=== PATIENT | female | born 1970 | race Two or more races ===

== ENCOUNTER 2018-03-26 14:47 | Emergency (ER) | payer OTHER ==
[~2018-03-26] VITALS: Ht 172.7 cm; Wt 96.2 kg
[2018-03-26] MEDS ORDERED: ENOXAPARIN SODIUM 80 MG/0.8 ML DISP.SYRIN SQ ONE (14:50)
[2018-03-26 15:20] LABS: BASOPHILS # (AUTO) 0.1 /CMM (0.0-0.2); BASOPHILS % (AUTO) 1.4 % (0.0-2.0); EOSINOPHILS % (AUTO) 0.9 % (0.0-6.0); HEMATOCRIT 35 % (33-45); HEMOGLOBIN 12.1 g/dL (11.5-14.8); LYMPHOCYTES # (AUTO) 1.1 /CMM (0.8-4.8); LYMPHOCYTES % (AUTO) 17.3 % (20.0-44.0); MEAN CORPUSCULAR HEMOGLOBIN 30 PG (26.0-33.0); MEAN CORPUSCULAR HGB CONC 35 g/dl (31.0-36.0); MEAN CORPUSCULAR VOLUME 87 fL (82-100); MONOCYTES # (AUTO) 0.3 /CMM (0.1-1.30); MONOCYTES % (AUTO) 4.9 % (2.0-12.0); NEUTROPHILS # (AUTO) 4.8 /CMM (1.8-8.9); NEUTROPHILS % (AUTO) 75.5 % (43.0-81.0); PLATELET COUNT (AUTO) 239 /CMM (150-450); RDW COEFFICIENT OF VARIATION 13.7 (11.5-15.0); RED BLOOD CELL COUNT(AUTO) 4.04 MIL/uL (4.0-5.2); WHITE BLOOD COUNT (AUTO) 6.4 K/uL (4.3-11.0)
[2018-03-26 15:28] LABS: CALCIUM, SERUM 8.7 mg/dL (8.5-10.1); CREATININE 0.7 mg/dL (0.6-1.3); POTASSIUM 4.1 mmol/L (3.5-5.1)
[2018-03-26 15:32] LABS: INR 0.83 (0.85-1.15)
[2018-03-26] MEDS: ENOXAPARIN SODIUM 60 MG/0.6 ML DISP.SYRIN SQ ONE (15:50)
--- NOTE | 2018-03-26 17:20 | NUR ---
Patient discharged to home in stable condition. Written and verbal after care instructions given. Patient verbalizes understanding of instruction.
[2018-03-26 17:22] VITALS: BP 131/77
== END 2018-03-26 17:23 | disposition home or self-care (01) ==
LOC: ER 14:49
DX: I82.411 Acute embolism and thrombosis of right femoral vein (principal); I82.431 Acute embolism and thrombosis of right popliteal vein; R60.0 Localized edema; F41.9 Anxiety disorder, unspecified; F32.9 Major depressive disorder, single episode, unspecified; F17.200 Nicotine dependence, unspecified, uncomplicated
CPT/HCPCS: 36415; 80048-TC; 85025-TC; 85730-TC; 93971-TC; A4606; J1650; Z7610

== ENCOUNTER 2018-03-31 13:49 | Emergency (ER) | payer OTHER ==
[~2018-03-31] VITALS: Ht 172.7 cm; Wt 96.2 kg
--- NOTE | 2018-03-31 14:00 | NUR ---
A/OX4. AMBULATORY IN A STEADY GAIT, C/O PAIN AND WEAKNESS TO R UPPER EXTREMITY X 3 DAYS. NAD. VSS NEURO INTACT. WILL CONT TO MONITOR
[2018-03-31 15:01] LABS: BASOPHILS % (AUTO) 0.1 % (0.0-2.0); EOSINOPHILS % (AUTO) 0.2 % (0.0-6.0); HEMATOCRIT 35 % (33-45); HEMOGLOBIN 12.2 g/dL (11.5-14.8); LYMPHOCYTES % (AUTO) 19.9 % (20.0-44.0); MEAN CORPUSCULAR HEMOGLOBIN 30 PG (26.0-33.0); MEAN CORPUSCULAR HGB CONC 35 g/dl (31.0-36.0); MEAN CORPUSCULAR VOLUME 87 fL (82-100); MONOCYTES # (AUTO) 0.3 /CMM (0.1-1.30); MONOCYTES % (AUTO) 6.3 % (2.0-12.0); NEUTROPHILS # (AUTO) 3.5 /CMM (1.8-8.9); NEUTROPHILS % (AUTO) 73.5 % (43.0-81.0); PLATELET COUNT (AUTO) 305 /CMM (150-450); RDW COEFFICIENT OF VARIATION 14.2 (11.5-15.0); RED BLOOD CELL COUNT(AUTO) 4.07 MIL/uL (4.0-5.2); WHITE BLOOD COUNT (AUTO) 4.8 K/uL (4.3-11.0)
[2018-03-31 15:09] LABS: CREATININE 0.8 mg/dL (0.6-1.3); POTASSIUM 4.2 mmol/L (3.5-5.1)
[2018-03-31 15:12] LABS: INR 0.93 (0.85-1.15)
--- NOTE | 2018-03-31 16:12 | NUR ---
IV removed. Catheter intact and site benign. Pressure and 4x4 applied to site. No bleeding noted.Patient discharged to home in stable condition. Written and verbal after care instructions given. Patient verbalizes understanding of instruction.
[2018-03-31 16:14] VITALS: BP 124/74
== END 2018-03-31 16:15 | disposition home or self-care (01) ==
LOC: ER 13:53
DX: M25.521 Pain in right elbow (principal); M25.511 Pain in right shoulder; R60.0 Localized edema; F41.9 Anxiety disorder, unspecified; R00.0 Tachycardia, unspecified; F17.210 Nicotine dependence, cigarettes, uncomplicated; F32.9 Major depressive disorder, single episode, unspecified; E78.00 Pure hypercholesterolemia, unspecified; G47.00 Insomnia, unspecified; Z86.718 Personal history of other venous thrombosis and embolism
CPT/HCPCS: 36415; 73030-TC; 73080-TC; 80048-TC; 85025-TC; 85730-TC; 93971-TC; A4606; Z7610

== ENCOUNTER 2018-04-17 13:35 | Emergency (ER) | payer OTHER ==
[~2018-04-17] VITALS: Ht 172.7 cm; Wt 95.3 kg
--- NOTE | 2018-04-17 13:40 | NUR ---
PT AMBULATORY TO ER BED . PT IS C/O RLE PAIN AND SWELLING. PT STATES 7/ PAIN. WAS DIAGNOSED W/ DVT LAST 03/26/18. PT ALSO WANT MED REFILL FOR HER ELIQUIS. VSS. STABLE VITALS. AWAITING MD LACKEY.
--- NOTE | 2018-04-17 14:20 | NUR ---
UDAY RHODES AT BEDSIDE FOR EVAL.
[2018-04-17] MEDS ORDERED: IOHEXOL-350 100 ML VIAL IV ONE (14:59)
[2018-04-17] MEDS ORDERED: CT SWABBABLE VALVE TRANS SET 1 EA INFUS.SET MC ONE (15:00)
[2018-04-17] MEDS ORDERED: IV NS 0.9% 1,000 ML BAG IV ONE (15:00)
[2018-04-17] MEDS ORDERED: IV NS 0.9% 250 ML IV ONE (15:00)
[2018-04-17 15:01] LABS: BASOPHILS % (AUTO) 0.3 % (0.0-2.0); EOSINOPHILS % (AUTO) 0.1 % (0.0-6.0); HEMATOCRIT 39 % (33-45); HEMOGLOBIN 13.2 g/dL (11.5-14.8); LYMPHOCYTES # (AUTO) 1.2 /CMM (0.8-4.8); LYMPHOCYTES % (AUTO) 24.2 % (20.0-44.0); MEAN CORPUSCULAR HEMOGLOBIN 29 PG (26.0-33.0); MEAN CORPUSCULAR HGB CONC 34 g/dl (31.0-36.0); MEAN CORPUSCULAR VOLUME 86 fL (82-100); MONOCYTES # (AUTO) 0.4 /CMM (0.1-1.30); MONOCYTES % (AUTO) 6.9 % (2.0-12.0); NEUTROPHILS # (AUTO) 3.6 /CMM (1.8-8.9); NEUTROPHILS % (AUTO) 68.5 % (43.0-81.0); PLATELET COUNT (AUTO) 244 /CMM (150-450); RDW COEFFICIENT OF VARIATION 13.6 (11.5-15.0); RED BLOOD CELL COUNT(AUTO) 4.56 MIL/uL (4.0-5.2); WHITE BLOOD COUNT (AUTO) 5.2 K/uL (4.3-11.0)
[2018-04-17 15:09] LABS: CALCIUM, SERUM 9.1 mg/dL (8.5-10.1); CARBON DIOXIDE 30 mmol/L (21-32); CHLORIDE 102 mmol/L (98-107); CREATININE 0.8 mg/dL (0.6-1.3); GLUCOSE 94 mg/dL (74-106); POTASSIUM 4.1 mmol/L (3.5-5.1); SODIUM SERUM 135 mmol/L (136-145); UREA NITROGEN, BLOOD 7 mg/dL (7-18)
[2018-04-17 15:10] LABS: INR 0.93 (0.85-1.15)
[2018-04-17 15:24] LABS: TROPONIN I < 0.017 ng/mL (0.00-0.056)
[2018-04-17 18:20] VITALS: BP 123/72
--- NOTE | 2018-04-17 18:30 | NUR ---
Patient discharged to home in stable condition. Written and verbal after care instructions given. Patient verbalizes understanding of instruction.IV removed. Catheter intact and site benign. Pressure and 4x4 applied to site. No bleeding noted.
== END 2018-04-17 18:53 | disposition home or self-care (01) ==
LOC: ER 13:36
DX: I82.491 Acute embolism and thrombosis of other specified deep vein of right lower extremity (principal); I87.2 Venous insufficiency (chronic) (peripheral); M79.1 Myalgia; F32.9 Major depressive disorder, single episode, unspecified; F41.9 Anxiety disorder, unspecified; F17.200 Nicotine dependence, unspecified, uncomplicated
CPT/HCPCS: 36415; 71275; 80048; 83880; 84484; 85025; 85730; 93005; 99285; A4606; J7030; J7050; Q9967; Z7610

== ENCOUNTER 2018-09-04 11:27 | Emergency (ER) | END 2018-09-04 14:19 | disposition home or self-care (01) | DX: I82.491 Acute embolism and thrombosis of other specified deep vein of right lower extremity (principal); R06.02 Shortness of breath; F32.9 Major depressive disorder, single episode, unspecified; F41.9 Anxiety disorder, unspecified; F17.200 Nicotine dependence, unspecified, uncomplicated ==

== ENCOUNTER 2018-10-06 10:30 | Emergency (ER) | payer OTHER ==
[~2018-10-06] VITALS: Ht 172.7 cm; Wt 94.3 kg
--- NOTE | 2018-10-06 10:40 | NUR ---
PT BIB SELF C/O JUSTICE LOWER EXTREMITY PAIN WITH HX OF DVT. PEDAL PULSES STRONG AND CAP REFILL WNL BILATERALLY. PT REPORTS SWELLING TODAY IS "BETTER THAN IT HAS BEEN FOR A MONTH", +1 PITTING BILATERALLY. DENIES CP, SOB. REST EVEN UNLABORED. SKIN WARM DRY. AMBULATORY STEADY GAIT. IN ER BED 11.
--- NOTE | 2018-10-06 11:02 | NUR ---
PT REQUESTING TO HAVE "COAG WORK-UP". NOTIFIED DR DYER.
--- NOTE | 2018-10-06 11:50 | NUR ---
US AT BEDSIDE
--- NOTE | 2018-10-06 12:54 | NUR ---
CALLED DR. MCBRIDE [phone] WILL CALL US BACK.
--- NOTE | 2018-10-06 13:37 | NUR ---
Patient discharged to home in stable condition. Written and verbal after care instructions given. Patient verbalizes understanding of instruction. ambulatory steady gait.
[2018-10-06 13:38] VITALS: BP 114/73
== END 2018-10-06 13:39 | disposition home or self-care (01) ==
LOC: ER 10:30
DX: I82.401 Acute embolism and thrombosis of unspecified deep veins of right lower extremity (principal); F32.9 Major depressive disorder, single episode, unspecified; F41.9 Anxiety disorder, unspecified; F17.200 Nicotine dependence, unspecified, uncomplicated; Z60.2 Problems related to living alone
CPT/HCPCS: 36415; 85730; 93970; 99284; A4606; Z7610

== ENCOUNTER 2019-05-12 15:47 | Emergency (ER) | payer MEDICAID, OTHER ==
[~2019-05-12] VITALS: Ht 172.7 cm; Wt 101.6 kg
--- NOTE | 2019-05-12 16:30 | NUR ---
PATIENT CAME IN TO THE ER C/O R THIGH PAIN AND SWELLING X 2 WEEKS. NO SOB. CONCERNED ABOUT DVT. AMBULATORY ON SCENE. ON ROOM AIR, BREATHING EVENLY AND UNLABORED. KEPT COMFORTABLE, WILL CONTINUE TO MONITOR ACCORDINGLY.
[2019-05-12] MEDS ORDERED: oxyCODONE/APAP (5/325 MG) 1 UDTAB TABLET PO ONE (17:00)
[2019-05-12] MEDS ORDERED: KETOROLAC TROMETHAMINE INJ 30 MG/ML VIAL IM ONE (17:00)
[2019-05-12 17:07] LABS: BASOPHILS # (AUTO) 0.1 /CMM (0.0-0.2); BASOPHILS % (AUTO) 1.1 % (0.0-2.0); EOSINOPHILS % (AUTO) 1.8 % (0.0-6.0); HEMATOCRIT 38 % (33-45); HEMOGLOBIN 12.7 g/dL (11.5-14.8); LYMPHOCYTES # (AUTO) 1.7 /CMM (0.8-4.8); LYMPHOCYTES % (AUTO) 32.3 % (20.0-44.0); MEAN CORPUSCULAR HGB CONC 34 g/dl (31.0-36.0); MEAN CORPUSCULAR VOLUME 85 fL (82-100); MONOCYTES # (AUTO) 0.4 /CMM (0.1-1.30); MONOCYTES % (AUTO) 7.7 % (2.0-12.0); NEUTROPHILS # (AUTO) 3.1 /CMM (1.8-8.9); NEUTROPHILS % (AUTO) 57.1 % (43.0-81.0); PLATELET COUNT (AUTO) 203 /CMM (150-450); RED BLOOD CELL COUNT(AUTO) 4.44 MIL/uL (4.0-5.2); WHITE BLOOD COUNT (AUTO) 5.4 K/uL (4.3-11.0)
[2019-05-12] MEDS ORDERED: oxyCODONE/APAP (5/325 MG) 1 UDTAB TABLET ONE (17:15)
[2019-05-12] MEDS ORDERED: KETOROLAC TROMETHAMINE 15 MG/ML VIAL ONE (17:15)
[2019-05-12 18:14] VITALS: BP 132/71
--- NOTE | 2019-05-12 18:15 | NUR ---
Patient discharged to home in stable condition. Written and verbal after care instructions given. Patient verbalizes understanding of instruction.
== END 2019-05-12 18:15 | disposition home or self-care (01) ==
LOC: ER 15:47
DX: I82.431 Acute embolism and thrombosis of right popliteal vein (principal); I82.411 Acute embolism and thrombosis of right femoral vein; R60.0 Localized edema; F32.9 Major depressive disorder, single episode, unspecified; F41.9 Anxiety disorder, unspecified; F17.200 Nicotine dependence, unspecified, uncomplicated; N92.0 Excessive and frequent menstruation with regular cycle; D25.9 Leiomyoma of uterus, unspecified; Z60.2 Problems related to living alone
CPT/HCPCS: 36415; 85025; 93971; 96372; 99284; 99406; J1885

== ENCOUNTER 2019-08-12 14:13 | Emergency (ER) | payer OTHER, MEDICAID ==
[~2019-08-12] VITALS: Ht 172.7 cm; Wt 102.1 kg
--- NOTE | 2019-08-12 14:20 | NUR ---
PT CAME INTO THE ED C/O R LOWER EXTREMITY PAIN X 2 WEEKS, HX OF DVT. OFF HER XARELTO SINCE JUNE. PT AAOX4, VSS, BREATHING EVEN AND UNLABORED ON ROOM AIR W/ NAD NOTED. PT CONNECTED TO THE MONITOR AND POX.
[2019-08-12] MEDS ORDERED: HYDROCODONE/APAP 5/325MG 1 EACH TABLET ONE (14:57)
[2019-08-12] MEDS ORDERED: HYDROCODONE/APAP 5/325MG 1 EACH TABLET PO ONE (15:00)
[2019-08-12 15:10] LABS: BASOPHILS % (AUTO) 0.6 % (0.0-2.0); EOSINOPHILS % (AUTO) 0.2 % (0.0-6.0); HEMATOCRIT 39 % (33-45); LYMPHOCYTES # (AUTO) 1.3 /CMM (0.8-4.8); LYMPHOCYTES % (AUTO) 19.9 % (20.0-44.0); MEAN CORPUSCULAR HGB CONC 33 g/dl (31.0-36.0); MEAN CORPUSCULAR VOLUME 85 fL (82-100); MONOCYTES # (AUTO) 0.4 /CMM (0.1-1.30); MONOCYTES % (AUTO) 6.3 % (2.0-12.0); NEUTROPHILS # (AUTO) 4.7 /CMM (1.8-8.9); PLATELET COUNT (AUTO) 222 /CMM (150-450); RED BLOOD CELL COUNT(AUTO) 4.59 MIL/uL (4.0-5.2); WHITE BLOOD COUNT (AUTO) 6.4 K/uL (4.3-11.0)
--- NOTE | 2019-08-12 15:30 | NUR ---
ULTRASOUND AT BEDSIDE
[2019-08-12 16:42] VITALS: BP 117/74
--- NOTE | 2019-08-12 16:42 | NUR ---
Patient discharged to home in stable condition. Written and verbal after care instructions given. Patient verbalizes understanding of instruction.
== END 2019-08-12 16:44 | disposition home or self-care (01) ==
LOC: ER 14:14
DX: I82.401 Acute embolism and thrombosis of unspecified deep veins of right lower extremity (principal); F17.200 Nicotine dependence, unspecified, uncomplicated; F32.9 Major depressive disorder, single episode, unspecified; F41.9 Anxiety disorder, unspecified; Z60.2 Problems related to living alone
CPT/HCPCS: 36415; 85025-TC; 93971-TC

== ENCOUNTER 2020-03-22 10:50 | Emergency (ER) | payer MEDICAID, OTHER ==
[~2020-03-22] VITALS: Ht 172.7 cm; Wt 106.6 kg
--- NOTE | 2020-03-22 11:03 | NUR ---
CAME IN FOR RLE PAIN AND SWELLING X 1 WEEK. TO ER BED 11, HOOKED TO MONITOR, CHANGED TO HOSP GOWN, WARM BLANKET PROVIDED, PATIENT AAO x 4, BREATHING EVEN AND UNLABORED, DR LIPSCOMB AT BEDSIDE FOR EVAL.
[2020-03-22 11:36] LABS: BASOPHILS % (AUTO) 0.3 % (0.0-2.0); HEMATOCRIT 40 % (33-45); HEMOGLOBIN 13.3 g/dL (11.5-14.8); LYMPHOCYTES # (AUTO) 1.3 /CMM (0.8-4.8); LYMPHOCYTES % (AUTO) 17.6 % (20.0-44.0); MEAN CORPUSCULAR HGB CONC 34 g/dl (31.0-36.0); MEAN CORPUSCULAR VOLUME 87 fL (82-100); MONOCYTES # (AUTO) 0.5 /CMM (0.1-1.30); MONOCYTES % (AUTO) 6.5 % (2.0-12.0); NEUTROPHILS # (AUTO) 5.8 /CMM (1.8-8.9); NEUTROPHILS % (AUTO) 75.6 % (43.0-81.0); PLATELET COUNT (AUTO) 215 /CMM (150-450); RED BLOOD CELL COUNT(AUTO) 4.52 MIL/uL (4.0-5.2); WHITE BLOOD COUNT (AUTO) 7.6 K/uL (4.3-11.0)
[2020-03-22 11:44] LABS: CALCIUM, SERUM 8.9 mg/dL (8.5-10.1); CARBON DIOXIDE 29 mmol/L (21-32); CHLORIDE 103 mmol/L (98-107); CREATININE 0.8 mg/dL (0.6-1.3); GLUCOSE 101 mg/dL (74-106); POTASSIUM 4.9 mmol/L (3.5-5.1); SODIUM SERUM 138 mmol/L (136-145); UREA NITROGEN, BLOOD 12 mg/dL (7-18)
[2020-03-22 11:50] LABS: ALANINE AMINOTRANSFERASE 21 U/L (12-78); ALBUMIN 3.6 g/dL (3.4-5.0); ALKALINE PHOSPHATASE 97 U/L (46-116); ASPARTATE AMINOTRANSFERASE 19 U/L (15-37); BILIRUBIN,TOTAL 0.1 mg/dL (0.2-1.0); TOTAL PROTEIN, SERUM 7.3 g/dL (6.4-8.2)
[2020-03-22] MEDS ORDERED: CT SWABBABLE VALVE TRANS SET 1 EA INFUS.SET MC ONE (12:13)
[2020-03-22] MEDS ORDERED: IOHEXOL-350 100 ML VIAL IV ONE (12:13)
[2020-03-22] MEDS ORDERED: IV NS 0.9% 250 ML IV ONE (12:13)
--- NOTE | 2020-03-22 12:23 | NUR ---
PICKED UP BY [employer] VIA [facility] FOR CTA
[2020-03-22] MEDS ORDERED: HYDROCODONE/APAP 5/325MG 1 EACH TABLET PO ONE (13:00)
[2020-03-22] MEDS ORDERED: HYDROCODONE/APAP 5/325MG 1 EACH TABLET ONE (13:06)
[2020-03-22 13:46] VITALS: BP 121/80
== END 2020-03-22 13:47 | disposition home or self-care (01) ==
LOC: ER 11:01
DX: I82.492 Acute embolism and thrombosis of other specified deep vein of left lower extremity (principal); Z86.73 Personal history of transient ischemic attack (TIA), and cerebral infarction without residual deficits; Z60.2 Problems related to living alone
CPT/HCPCS: 36415; 71045; 71275; 80048; 80076; 84484; 85025; 85730; 93005; 93970; 99285; J7050; Q9967

== ENCOUNTER 2020-09-23 15:21 | Emergency (ER) | payer MEDICAID ==
[~2020-09-23] VITALS: Ht 172.7 cm; Wt 113.4 kg
--- NOTE | 2020-09-23 16:15 | NUR ---
covid swab collected sentto lab
--- NOTE | 2020-09-23 17:10 | NUR ---
Patient discharged to home in stable condition. Written and verbal after care instructions given. Patient verbalizes understanding of instruction.
[2020-09-23 17:12] VITALS: BP 154/98
== END 2020-09-23 17:12 | disposition home or self-care (01) ==
LOC: ER 15:31
DX: R05 Cough (principal); J02.9 Acute pharyngitis, unspecified; R68.83 Chills (without fever); Z20.822 Contact with and (suspected) exposure to COVID-19; M79.605 Pain in left leg; M79.604 Pain in right leg; Z86.718 Personal history of other venous thrombosis and embolism; Z79.01 Long term (current) use of anticoagulants; F32.9 Major depressive disorder, single episode, unspecified; F41.9 Anxiety disorder, unspecified
CPT/HCPCS: 71045; 99284; C9803; U0003

== ENCOUNTER 2020-10-13 14:16 | Emergency (ER) | payer MEDICAID ==
[~2020-10-13] VITALS: Ht 172.7 cm; Wt 113.4 kg
--- NOTE | 2020-10-13 14:40 | NUR ---
BIBS FROM HOME TO ER BED 6. AAOX4. NOT IN RESP DISTRESS, BREATHING EVEN, UNLABORED AND TALKING IN FULL COMPLETE SENTENCES. CAME IN FOR COUGH, CONGESTION, DIZZYNESS AND NUMBNESS AND TINGLING ON BILAT LEG. PT REPORTS THAT SHE IS STIL ABLE TO AMBULATED BUT SLOW AND WEAK. AWAITING MD FOR EVAL.
[2020-10-13] MEDS ORDERED: methylPREDNISolone SOD SUCC 125 MG/2ML VIAL IV ONE (15:00)
[2020-10-13] MEDS ORDERED: IV NS 0.9% 1,000 ML IV ONE (15:00)
[2020-10-13] MEDS ORDERED: ALBUTEROL FS 2.5 MG/3 ML VIAL.NEB NEB ONE (15:00)
[2020-10-13] MEDS ORDERED: IPRATROPIUM NEB FS 0.5 MG/2.5 ML AMPUL.NEB NEB ONE (15:00)
[2020-10-13] MEDS ORDERED: methylPREDNISolone SOD SUCC 125 MG/2ML VIAL ONE (15:22)
[2020-10-13 15:29] LABS: BASOPHILS % (AUTO) 0.4 % (0.0-2.0); EOSINOPHILS % (AUTO) 0.2 % (0.0-6.0); HEMATOCRIT 41 % (33-45); HEMOGLOBIN 13.7 g/dL (11.5-14.8); LYMPHOCYTES # (AUTO) 1.3 /CMM (0.8-4.8); MEAN CORPUSCULAR HGB CONC 33 g/dl (31.0-36.0); MEAN CORPUSCULAR VOLUME 86 fL (82-100); MONOCYTES # (AUTO) 0.5 /CMM (0.1-1.30); MONOCYTES % (AUTO) 6.3 % (2.0-12.0); NEUTROPHILS % (AUTO) 76.1 % (43.0-81.0); PLATELET COUNT (AUTO) 260 /CMM (150-450); RED BLOOD CELL COUNT(AUTO) 4.75 MIL/uL (4.0-5.2); WHITE BLOOD COUNT (AUTO) 7.9 K/uL (4.3-11.0)
[2020-10-13 15:46] LABS: CALCIUM, SERUM 9.4 mg/dL (8.5-10.1); CARBON DIOXIDE 26 mmol/L (21-32); CHLORIDE 100 mmol/L (98-107); CREATININE 0.9 mg/dL (0.6-1.3); GLUCOSE 139 mg/dL (74-106); POTASSIUM 4.5 mmol/L (3.5-5.1); SODIUM SERUM 137 mmol/L (136-145); UREA NITROGEN, BLOOD 7 mg/dL (7-18)
[2020-10-13 16:01] LABS: ALANINE AMINOTRANSFERASE 30 U/L (12-78); ALBUMIN 3.5 g/dL (3.4-5.0); ALKALINE PHOSPHATASE 132 U/L (46-116); ASPARTATE AMINOTRANSFERASE 21 U/L (15-37); B-TYPE NATRIURETIC PEPTIDE 9 PG/ML (0-125); BILIRUBIN,DIRECT 0.1 mg/dL (0.0-0.2); BILIRUBIN,TOTAL 0.2 mg/dL (0.2-1.0); TOTAL PROTEIN, SERUM 7.6 g/dL (6.4-8.2)
--- NOTE | 2020-10-13 16:49 | NUR ---
LAB CALLED. COVID RESULTS NEGATIVE.
[2020-10-13] MEDS ORDERED: MORPHINE SULFATE INJ 10 MG/ML DISP.SYRIN IM ONE (17:30)
[2020-10-13] MEDS ORDERED: ONDANSETRON HCL/PF 4 MG/2 ML VIAL IV ONE (17:30)
[2020-10-13] MEDS ORDERED: ALBUTEROL FS 2.5 MG/3 ML VIAL.NEB ONE (18:28)
[2020-10-13] MEDS ORDERED: IPRATROPIUM NEB FS 0.5 MG/2.5 ML AMPUL.NEB ONE (18:28)
--- NOTE | 2020-10-13 18:38 | NUR ---
VERFIED WITH MD REGARDING MORPHNE DOSE. GIVEN MORPHINE 4MG IV X 1.
[2020-10-13] MEDS ORDERED: MORPHINE SULFATE INJ 4 MG/ML DISP.SYRIN ONE (18:41)
[2020-10-13] MEDS ORDERED: ONDANSETRON HCL/PF 4 MG/2 ML VIAL ONE (18:41)
[2020-10-13] MEDS ORDERED: HYDR-3976 GT (19:08)
[2020-10-13] MEDS ORDERED: PRED20TA PO (19:08)
[2020-10-13] MEDS ORDERED: BENZ-13 PO (19:08)
--- NOTE | 2020-10-13 19:33 | NUR ---
Patient discharged to home in stable condition. Written and verbal after care instructions given. Patient verbalizes understanding of instruction.IV removed. Catheter intact and site benign. Pressure and 4x4 applied to site. No bleeding noted. Pt ambulatory with a steady gait
[2020-10-13 19:34] VITALS: BP 119/81
== END 2020-10-13 19:34 | disposition home or self-care (01) ==
LOC: ER 14:20
DX: R06.02 Shortness of breath (principal); R06.2 Wheezing; Z20.822 Contact with and (suspected) exposure to COVID-19; F17.210 Nicotine dependence, cigarettes, uncomplicated; R00.0 Tachycardia, unspecified; Z86.718 Personal history of other venous thrombosis and embolism; Z79.01 Long term (current) use of anticoagulants
CPT/HCPCS: 36415; 71045; 80048; 80076; 83605 ×2; 83880; 84484 ×2; 85025; 87426; 93005; 94640; 96361; 96372; 96374; 96375; 99285; C9803; J2270; J2405; J2930; J7030

== ENCOUNTER 2020-10-20 12:52 | Emergency (ER) | payer MEDICAID ==
[~2020-10-20] VITALS: Ht 172.7 cm; Wt 113.4 kg
[~2020-10-20 12:52] MED LIST: BENZ-13 PO; HYDR-3976 GT; PRED20TA PO
[2020-10-20] MEDS ORDERED: IV NS 0.9% 500 ML IV ONE (13:30)
--- NOTE | 2020-10-20 13:30 | NUR ---
BIBS FROM HOME TO ER BED 4. AAOX4. BREATHING ZULMA AND UNLABORED. AMBULATORY. CAME IN FOR SOB FOR THE PAST 3 WEEKS. PT WAS HERE LAST WEEK FOR THE SAME REASON, FELT BETTER AND NOW STARTED TO GET SHORT OF BREATH AGAIN SINCE FRIDAY. PT IS SATTING 95% ON RA. PALCED ON O2 VIA NC @ 2LPM. PT VERBALIZED THAT SOB IS BETTER WITH THE USE OF O2. WAS AT TH BEDSIDE FOR EVAL. ORDERS RECEIVED, NOTED AND CARRIED OUT. IV LINE ESTABLISHED ON R AC18G, BLLOD DRAWN AND GIVEN TO PHARMACOLOGY PROFESSOR AT BEDSIDE. PT ON MONITOR.
[2020-10-20 13:45] LABS: BASOPHILS # (AUTO) 0.1 /CMM (0.0-0.2); BASOPHILS % (AUTO) 0.9 % (0.0-2.0); EOSINOPHILS % (AUTO) 0.1 % (0.0-6.0); HEMATOCRIT 43 % (33-45); HEMOGLOBIN 14.5 g/dL (11.5-14.8); LYMPHOCYTES # (AUTO) 1.5 /CMM (0.8-4.8); LYMPHOCYTES % (AUTO) 18.4 % (20.0-44.0); MEAN CORPUSCULAR HGB CONC 34 g/dl (31.0-36.0); MEAN CORPUSCULAR VOLUME 86 fL (82-100); MONOCYTES # (AUTO) 0.6 /CMM (0.1-1.30); MONOCYTES % (AUTO) 6.6 % (2.0-12.0); NEUTROPHILS # (AUTO) 6.2 /CMM (1.8-8.9); PLATELET COUNT (AUTO) 242 /CMM (150-450); RED BLOOD CELL COUNT(AUTO) 4.98 MIL/uL (4.0-5.2); WHITE BLOOD COUNT (AUTO) 8.4 K/uL (4.3-11.0)
[2020-10-20 14:06] LABS: CALCIUM, SERUM 8.8 mg/dL (8.5-10.1); CARBON DIOXIDE 22 mmol/L (21-32); CHLORIDE 97 mmol/L (98-107); CREATININE 1.1 mg/dL (0.6-1.3); GLUCOSE 271 mg/dL (74-106); POTASSIUM 4.3 mmol/L (3.5-5.1); SODIUM SERUM 132 mmol/L (136-145); UREA NITROGEN, BLOOD 14 mg/dL (7-18)
[2020-10-20 14:09] LABS: ALANINE AMINOTRANSFERASE 28 U/L (12-78); ALBUMIN 3.4 g/dL (3.4-5.0); ALKALINE PHOSPHATASE 112 U/L (46-116); ASPARTATE AMINOTRANSFERASE 18 U/L (15-37); B-TYPE NATRIURETIC PEPTIDE < 5 PG/ML (0-125); BILIRUBIN,TOTAL 0.2 mg/dL (0.2-1.0); TOTAL PROTEIN, SERUM 7.5 g/dL (6.4-8.2)
[2020-10-20 14:15] LABS: D-DIMER 0.55 mg/L(FEU (0.17-0.50)
[2020-10-20] MEDS ORDERED: IPRATROPIUM NEB FS 0.5 MG/2.5 ML AMPUL.NEB NEB ONE (14:30)
[2020-10-20] MEDS ORDERED: ALBUTEROL FS 2.5 MG/3 ML VIAL.NEB NEB ONE (14:30)
[2020-10-20] MEDS ORDERED: methylPREDNISolone SOD SUCC 125 MG/2ML VIAL IV ONE (14:30)
[2020-10-20] MEDS ORDERED: APIX5TAB PO (14:31)
[2020-10-20] MEDS ORDERED: IOHEXOL-350 100 ML VIAL IV ONE (14:36)
[2020-10-20] MEDS ORDERED: CT SWABBABLE VALVE TRANS SET 1 EA INFUS.SET MC ONE (14:36)
[2020-10-20] MEDS ORDERED: IV NS 0.9% 250 ML IV ONE (14:36)
[2020-10-20] MEDS ORDERED: methylPREDNISolone SOD SUCC 125 MG/2ML VIAL ONE (14:55)
--- NOTE | 2020-10-20 14:56 | NUR ---
PT BACK FROM RADIOLOGY
[2020-10-20] MEDS ORDERED: ACETAMINOPHEN ES 500 MG TABLET ONE (15:19)
[2020-10-20] MEDS ORDERED: IPRATROPIUM NEB FS 0.5 MG/2.5 ML AMPUL.NEB ONE (15:20)
[2020-10-20] MEDS ORDERED: ALBUTEROL FS 2.5 MG/3 ML VIAL.NEB ONE (15:20)
[2020-10-20] MEDS ORDERED: ACETAMINOPHEN 325 MG TABLET PO ONE (15:30)
[2020-10-20] MEDS ORDERED: PRED20TA PO (15:39)
[2020-10-20] MEDS ORDERED: ALBU18HF2 INH (15:39)
[2020-10-20] MEDS ORDERED: ACET237L PO (15:39)
[2020-10-20] MEDS ORDERED: FLUT1DIS INH (15:39)
[2020-10-20] MEDS ORDERED: TRAM50TA2 PO (15:42)
[2020-10-20 16:11] VITALS: BP 129/55
[2020-10-20 16:26] LABS: CREATINE KINASE, TOTAL 29 U/L (26-192); FERRITIN 18 ng/mL (8-388)
[2020-10-20 16:33] LABS: C-REACTIVE PROTEIN 2.6 mg/dL (0.0-0.9)
== END 2020-10-20 16:11 | disposition home or self-care (01) ==
LOC: ER 12:55
DX: J44.1 Chronic obstructive pulmonary disease with (acute) exacerbation (principal); G89.4 Chronic pain syndrome; Z20.822 Contact with and (suspected) exposure to COVID-19; R79.1 Abnormal coagulation profile; Z86.718 Personal history of other venous thrombosis and embolism; Z79.01 Long term (current) use of anticoagulants; R00.0 Tachycardia, unspecified; F17.200 Nicotine dependence, unspecified, uncomplicated
CPT/HCPCS: 36415; 71045; 71275; 80053; 82550; 82728; 83605; 83615; 83880; 84145; 84484; 85025; 85378; 85385; 85730; 86140; 87040 ×2; 93005; 94640; 96361; 96374; 99285; 99406; C9803; J2930; J7040; J7050; Q9967; U0003

== ENCOUNTER 2020-11-25 12:06 | Emergency (ER) | payer MEDICAID ==
[~2020-11-25] VITALS: Ht 172.7 cm; Wt 113.4 kg
[~2020-11-25 12:06] MED LIST changes: +ACET237L PO; +ALBU18HF2 INH; +APIX5TAB PO; -BENZ-13 PO; +FLUT1DIS INH; -HYDR-3976 GT; +TRAM50TA2 PO
[2020-11-25] MEDS ORDERED: MORPHINE SULFATE INJ 2 MG/ML DISP.SYRIN IV ONE (12:30)
[2020-11-25] MEDS ORDERED: IV NS 0.9% 1,000 ML BAG IV ONE (12:30)
[2020-11-25 12:56] LABS: BASOPHILS % (AUTO) 0.5 % (0.0-2.0); HEMATOCRIT 41 % (33-45); HEMOGLOBIN 13.6 g/dL (11.5-14.8); LYMPHOCYTES # (AUTO) 1.3 /CMM (0.8-4.8); MEAN CORPUSCULAR HGB CONC 33 g/dl (31.0-36.0); MEAN CORPUSCULAR VOLUME 87 fL (82-100); MONOCYTES # (AUTO) 0.4 /CMM (0.1-1.30); MONOCYTES % (AUTO) 5.5 % (2.0-12.0); NEUTROPHILS # (AUTO) 5.8 /CMM (1.8-8.9); PLATELET COUNT (AUTO) 234 /CMM (150-450); RED BLOOD CELL COUNT(AUTO) 4.68 MIL/uL (4.0-5.2); WHITE BLOOD COUNT (AUTO) 7.5 K/uL (4.3-11.0)
[2020-11-25] MEDS ORDERED: MORPHINE SULFATE INJ 4 MG/ML DISP.SYRIN ONE (13:00)
[2020-11-25 13:24] LABS: CREATININE 1.1 mg/dL (0.6-1.3); POTASSIUM 3.9 mmol/L (3.5-5.1)
--- NOTE | 2020-11-25 13:45 | NUR ---
pt rec;d to er c/o abd pain 05/18 for one week vss ua labs drawn sent to lab
[2020-11-25] MEDS ORDERED: IOHEXOL-350 100 ML VIAL IV ONE (13:55)
[2020-11-25] MEDS ORDERED: CT SWABBABLE VALVE TRANS SET 1 EA INFUS.SET MC ONE (13:55)
[2020-11-25] MEDS ORDERED: IV NS 0.9% 250 ML IV ONE (13:55)
[2020-11-25 14:04] LABS: ALBUMIN 3.6 g/dL (3.4-5.0); BILIRUBIN,DIRECT 0.1 mg/dL (0.0-0.2); BILIRUBIN,TOTAL 0.2 mg/dL (0.2-1.0); TOTAL PROTEIN, SERUM 7.4 g/dL (6.4-8.2)
--- NOTE | 2020-11-25 14:10 | NUR ---
sent to ct / meds given per
[2020-11-25 15:46] LABS: BILIRUBIN,URINE NEGATIVE (NEGATIVE); COLOR,URINE YELLOW (YELLOW); LEUKOCYTE ESTERASE ,URINE SMALL (NEGATIVE); NITRITE, URINE NEGATIVE (NEGATIVE); PH,URINE 5.5 (5.0-8.0); PROTEIN,URINE NEGATIVE (NEGATIVE); UGLUCOSE 250 MG/DL mg/dL (NEGATIVE); UROBILINOGEN,URINE 0.2 EU/dL (0.2)
[2020-11-25 16:00] LABS: BACTERIA,URINE 2+ /HPF (None Seen); RBC,URINE 0-2 /HPF (0-2)
[2020-11-25] MEDS ORDERED: TRAM50TA2 PO (16:14)
[2020-11-25] MEDS ORDERED: CEPH500C2 PO (16:14)
[2020-11-25] MEDS ORDERED: CYCL5TAB PO (16:26)
[2020-11-25] MEDS ORDERED: HYDROCODONE/APAP 10/325MG TABLET PO ONE (16:30)
[2020-11-25] MEDS ORDERED: CEPHALEXIN MONOHYDRATE 500 MG CAPSULE PO ONE ×2 (16:30→16:33)
[2020-11-25] MEDS ORDERED: HYDROCODONE/APAP 10/325MG TABLET ONE (16:35)
--- NOTE | 2020-11-25 16:41 | NUR ---
PT. VERBALIZED UNDERSTANDING OF AFTERCARE INSTRUCTIONS.IV removed. Catheter intact and site benign. Pressure and 4x4 applied to site. No bleeding noted.
[2020-11-25 16:42] VITALS: BP 133/75
== END 2020-11-25 16:43 | disposition home or self-care (01) ==
LOC: ER 12:09
DX: R10.9 Unspecified abdominal pain (principal); F32.9 Major depressive disorder, single episode, unspecified; F41.9 Anxiety disorder, unspecified; F17.200 Nicotine dependence, unspecified, uncomplicated; Z86.73 Personal history of transient ischemic attack (TIA), and cerebral infarction without residual deficits; Z60.2 Problems related to living alone; Z79.899 Other long term (current) drug therapy
CPT/HCPCS: 36415; 71045; 71275; 74176; 80048; 80076; 81001; 83690; 85025; 87086; 96361; 96374; 99285; J2270; J7050; Q9967

== ENCOUNTER 2020-12-01 17:16 | Emergency (ER) | payer MEDICAID ==
[~2020-12-01] VITALS: Ht 172.7 cm; Wt 113.4 kg
[~2020-12-01 17:16] MED LIST changes: +CEPH500C2 PO; +CYCL5TAB PO
--- NOTE | 2020-12-01 17:40 | NUR ---
THE PATIENT BIBS FOR C/O R FLANK PAIN X 1 WEEK, SEEN 6 DAYS AGO FOR SAME REASON. DENIES DYSURIA, NO SOB ENDORSED. ALSO C/O CHEST ABSCESS/PAIN X 2 DAYS. THE PATIENT IS ALERT AND ORIENTED X4. PATIENT ATTACHED ON A MONITOR. WILL CONTINUE TO MONITOR.
[2020-12-01] MEDS ORDERED: MORPHINE SULFATE INJ 2 MG/ML DISP.SYRIN IV ONE (18:00)
[2020-12-01] MEDS ORDERED: ONDANSETRON HCL/PF 4 MG/2 ML VIAL IVP ONE (18:00)
[2020-12-01 18:07] LABS: BILIRUBIN,URINE Negative (NEGATIVE); COLOR,URINE YELLOW (YELLOW); LEUKOCYTE ESTERASE ,URINE Negative (NEGATIVE); NITRITE, URINE Negative (NEGATIVE); PH,URINE 6.5 (5.0-8.0); PROTEIN,URINE Negative (NEGATIVE); UGLUCOSE Negative (NEGATIVE); UROBILINOGEN,URINE 0.2 EU/dL (0.2)
[2020-12-01 18:22] LABS: BASOPHILS # (AUTO) 0.1 /CMM (0.0-0.2); BASOPHILS % (AUTO) 1.8 % (0.0-2.0); EOSINOPHILS % (AUTO) 0.1 % (0.0-6.0); HEMATOCRIT 42 % (33-45); HEMOGLOBIN 14.3 g/dL (11.5-14.8); LYMPHOCYTES # (AUTO) 1.4 /CMM (0.8-4.8); LYMPHOCYTES % (AUTO) 22.9 % (20.0-44.0); MEAN CORPUSCULAR HGB CONC 34 g/dl (31.0-36.0); MEAN CORPUSCULAR VOLUME 87 fL (82-100); MONOCYTES # (AUTO) 0.4 /CMM (0.1-1.30); MONOCYTES % (AUTO) 6.4 % (2.0-12.0); NEUTROPHILS # (AUTO) 4.2 /CMM (1.8-8.9); NEUTROPHILS % (AUTO) 68.8 % (43.0-81.0); PLATELET COUNT (AUTO) 214 /CMM (150-450); RED BLOOD CELL COUNT(AUTO) 4.85 MIL/uL (4.0-5.2)
[2020-12-01] MEDS ORDERED: ONDANSETRON HCL/PF 4 MG/2 ML VIAL ONE (18:29)
[2020-12-01] MEDS ORDERED: MORPHINE SULFATE INJ 4 MG/ML DISP.SYRIN ONE (18:30)
[2020-12-01 18:32] LABS: CALCIUM, SERUM 8.9 mg/dL (8.5-10.1); CARBON DIOXIDE 26 mmol/L (21-32); CHLORIDE 102 mmol/L (98-107); CREATININE 0.9 mg/dL (0.6-1.3); GLUCOSE 119 mg/dL (74-106); SODIUM SERUM 138 mmol/L (136-145); UREA NITROGEN, BLOOD 9 mg/dL (7-18)
[2020-12-01 18:38] LABS: ALBUMIN 3.5 g/dL (3.4-5.0); BILIRUBIN,DIRECT 0.1 mg/dL (0.0-0.2); BILIRUBIN,TOTAL 0.2 mg/dL (0.2-1.0); TOTAL PROTEIN, SERUM 7.2 g/dL (6.4-8.2)
[2020-12-01] MEDS ORDERED: DIAZ2TAB PO (18:58)
[2020-12-01] MEDS ORDERED: NAPR-1009 PO (18:58)
--- NOTE | 2020-12-01 19:09 | NUR ---
Patient discharged to home in stable condition. Written and verbal after care instructions given. Patient verbalizes understanding of instruction. IV removed. Catheter intact and site benign. Pressure and 4x4 applied to site. No bleeding noted. PT ambulatory with a steady gait
[2020-12-01 19:21] VITALS: BP 118/72
== END 2020-12-01 19:21 | disposition home or self-care (01) ==
LOC: ER 18:09
DX: M54.6 Pain in thoracic spine (principal); R10.11 Right upper quadrant pain; F32.9 Major depressive disorder, single episode, unspecified; F41.9 Anxiety disorder, unspecified; F17.200 Nicotine dependence, unspecified, uncomplicated; Z60.2 Problems related to living alone; Z79.899 Other long term (current) drug therapy; Z86.718 Personal history of other venous thrombosis and embolism
CPT/HCPCS: 36415; 71046; 80048; 80076; 81003; 83690; 84484; 85025; 93005; 96374; 96375; 99285; J2270; J2405

== ENCOUNTER 2020-12-06 16:14 | Emergency (ER) | payer MEDICAID ==
[~2020-12-06] VITALS: Ht 172.7 cm; Wt 113.4 kg
[~2020-12-06 16:14] MED LIST changes: +DIAZ2TAB PO; +NAPR-1009 PO
[2020-12-06] MEDS ORDERED: KETOROLAC TROMETHAMINE INJ 30 MG/ML VIAL IV ONE (17:30)
[2020-12-06] MEDS ORDERED: KETOROLAC TROMETHAMINE 15 MG/ML VIAL ONE (17:36)
[2020-12-06 17:37] LABS: HEMOGLOBIN 13.6 g/dL (11.5-14.8); WHITE BLOOD COUNT (AUTO) 6.4 K/uL (4.3-11.0)
[2020-12-06 17:39] LABS: BASOPHILS % (AUTO) 0.7 % (0.0-2.0); EOSINOPHILS % (AUTO) 0.2 % (0.0-6.0); HEMATOCRIT 40 % (33-45); LYMPHOCYTES # (AUTO) 1.6 /CMM (0.8-4.8); LYMPHOCYTES % (AUTO) 25.6 % (20.0-44.0); MEAN CORPUSCULAR HGB CONC 34 g/dl (31.0-36.0); MEAN CORPUSCULAR VOLUME 87 fL (82-100); MONOCYTES # (AUTO) 0.4 /CMM (0.1-1.30); MONOCYTES % (AUTO) 6.7 % (2.0-12.0); NEUTROPHILS # (AUTO) 4.3 /CMM (1.8-8.9); NEUTROPHILS % (AUTO) 66.8 % (43.0-81.0); PLATELET COUNT (AUTO) 207 /CMM (150-450); RED BLOOD CELL COUNT(AUTO) 4.62 MIL/uL (4.0-5.2)
--- NOTE | 2020-12-06 17:44 | NUR ---
PATIENT A/OX4, BREATHING EVEN AND UNLABORED, NO SOB NOTED.
[2020-12-06 17:49] LABS: ALBUMIN 3.5 g/dL (3.4-5.0); BILIRUBIN,TOTAL 0.3 mg/dL (0.2-1.0); CREATININE 0.9 mg/dL (0.6-1.3); POTASSIUM 4.3 mmol/L (3.5-5.1); TOTAL PROTEIN, SERUM 7.3 g/dL (6.4-8.2)
[2020-12-06 17:56] LABS: BILIRUBIN,URINE Negative (NEGATIVE); COLOR,URINE YELLOW (YELLOW); LEUKOCYTE ESTERASE ,URINE Negative (NEGATIVE); NITRITE, URINE Negative (NEGATIVE); PROTEIN,URINE Negative (NEGATIVE); UGLUCOSE Negative (NEGATIVE); UROBILINOGEN,URINE 0.2 EU/dL (0.2)
[2020-12-06] MEDS ORDERED: DICL50TA7 PO (18:44)
--- NOTE | 2020-12-06 19:09 | NUR ---
Patient is medically cleared by Dr. Nix, instructed patient to follow up with primary MD and maybe a referral for a GI consult or pain management MD. Lab results and imaging provided to patient. Rx explained and given for pain. IV removed. Catheter intact and site benign. Pressure and 4x4 applied to site. No bleeding noted.Patient discharged to home in stable condition. Written and verbal after care instructions given. Patient verbalizes understanding of instruction.
[2020-12-06 19:11] VITALS: BP 130/76
== END 2020-12-06 19:11 | disposition home or self-care (01) ==
LOC: ER 16:21
DX: R10.11 Right upper quadrant pain (principal); M54.5 Low back pain; F32.9 Major depressive disorder, single episode, unspecified; F41.9 Anxiety disorder, unspecified; F17.200 Nicotine dependence, unspecified, uncomplicated; Z86.718 Personal history of other venous thrombosis and embolism; Z60.2 Problems related to living alone; Z79.899 Other long term (current) drug therapy
CPT/HCPCS: 36415; 76705; 80048; 80076; 81003; 83690; 85025; 93005; 96374; 99285; J1885

== ENCOUNTER 2021-06-21 12:13 | Emergency (ER) | payer MEDICAID ==
[~2021-06-21] VITALS: Ht 172.7 cm; Wt 124.7 kg
[~2021-06-21 12:13] MED LIST changes: +DICL50TA7 PO
--- NOTE | 2021-06-21 13:07 | NUR ---
THE PATIENT IS SENT HER BY PMD FOR POSSIBLE BLOOD CLOT,RIGHT LEG. RATES RIGHT LEG PAIN 5/10. WILL CONTINUE TO MONITOR THE PATIENT.
[2021-06-21 13:54] LABS: BASOPHILS # (AUTO) 0.1 K/uL (0.0-0.2); BASOPHILS % (AUTO) 0.7 % (0.0-2.0); EOSINOPHILS % (AUTO) 0.3 % (0.0-6.0); HEMATOCRIT 42 % (33-45); HEMOGLOBIN 13.9 g/dL (11.5-14.8); LYMPHOCYTES # (AUTO) 2.1 K/uL (0.8-4.8); LYMPHOCYTES % (AUTO) 28.5 % (20.0-44.0); MEAN CORPUSCULAR HGB CONC 33 g/dl (31.0-36.0); MEAN CORPUSCULAR VOLUME 89 fL (82-100); MONOCYTES # (AUTO) 0.4 K/uL (0.1-1.30); MONOCYTES % (AUTO) 5.8 % (2.0-12.0); NEUTROPHILS # (AUTO) 4.7 K/uL (1.8-8.9); NEUTROPHILS % (AUTO) 64.7 % (43.0-81.0); PLATELET COUNT (AUTO) 234 K/uL (150-450); RED BLOOD CELL COUNT(AUTO) 4.69 MIL/uL (4.0-5.2); WHITE BLOOD COUNT (AUTO) 7.3 K/uL (4.3-11.0)
[2021-06-21 14:03] LABS: CALCIUM, SERUM 9.2 mg/dL (8.5-10.1); CREATININE 0.9 mg/dL (0.6-1.3); POTASSIUM 4.3 mmol/L (3.5-5.1)
--- NOTE | 2021-06-21 17:00 | NUR ---
US REPORT NOT BACK, SHE CAN SIGN AMA IF SHE INSISTS ON LEAVING PER DR HEMPHILL
--- NOTE | 2021-06-21 17:51 | NUR ---
RADIOLOGY CALLED AGAIN FOR RESULTS OF US
[2021-06-21] MEDS ORDERED: APIXABAN 5 MG TABLET PO STA (19:09)
--- NOTE | 2021-06-21 19:11 | NUR ---
REPORT GIVEN TO NURSE WHITE FOR ADAIR
[2021-06-21] MEDS ORDERED: HYDROCODONE/APAP 5/325MG TABLET ONE (19:16)
[2021-06-21] MEDS ORDERED: APIXABAN 5 MG TABLET ONE (19:16)
[2021-06-21] MEDS ORDERED: APIX5TAB PO (19:20)
[2021-06-21] MEDS ORDERED: HYDR-4303 PO (19:20)
--- NOTE | 2021-06-21 19:23 | NUR ---
Patient does not wish to proceed with medical care recommended by Dr. Escalante. Patient given information related to possible complications, up to and including , which could occur as a result of leaving the hospital at this time. Patient verbalizes understanding of risks involved due to leaving against medical advice. Patient has signed AMA form. Pt ambulatory with steady gait, son will drive pt home
[2021-06-21] MEDS ORDERED: HYDROCODONE/APAP 5/325MG TABLET PO ONE (19:30)
[2021-06-21 19:31] VITALS: BP 135/98
== END 2021-06-21 19:23 | disposition left against medical advice (07) ==
LOC: ER 12:16
DX: I82.401 Acute embolism and thrombosis of unspecified deep veins of right lower extremity (principal); R22.41 Localized swelling, mass and lump, right lower limb; F32.9 Major depressive disorder, single episode, unspecified; F41.9 Anxiety disorder, unspecified; Z60.2 Problems related to living alone; Z79.899 Other long term (current) drug therapy
CPT/HCPCS: 36415; 80048-TC; 85025-TC; 85610-TC; 85730-TC; 93971-TC

== ENCOUNTER 2021-06-24 16:58 | Inpatient (IN) | payer MEDICAID ==
[~2021-06-24] VITALS: Ht 172.7 cm; Wt 128.4 kg
[~2021-06-24 16:58] MED LIST changes: +HYDR-4303 PO
--- NOTE | 2021-06-24 17:31 | NUR ---
PT AMBULATORY TO ER BED 04 C/O WORSENING SOB AND RLE PAIN AND SWELLING. STATES WAS SEEN HERE 2 DAYS AGO AND WAS DIAGNOSED W/ DVT. WAS ADVISED TO STATE BUT LEFT AGAINST MEDICAL ADVISE. STABLE VITALS. DENIES CHEST PAIN. AWAITING MD LACKEY.
[2021-06-24] MEDS ORDERED: IOHEXOL-350 100 ML VIAL IV ONE (17:51)
[2021-06-24] MEDS ORDERED: MORPHINE SULFATE INJ 4 MG/ML DISP.SYRIN ONE ×2 (17:54→21:01)
[2021-06-24] MEDS ORDERED: ONDANSETRON HCL/PF 4 MG/2 ML VIAL ONE (17:54)
[2021-06-24] MEDS ORDERED: IV NS 0.9% 1,000 ML BAG IV ONE (18:00)
[2021-06-24] MEDS ORDERED: MORPHINE SULFATE INJ 2 MG/ML DISP.SYRIN IV ONE ×2 (18:00→20:30)
[2021-06-24] MEDS ORDERED: ONDANSETRON HCL/PF 4 MG/2 ML VIAL IVP ONE (18:00)
--- NOTE | 2021-06-24 18:00 | NUR ---
PT C/O RIGHT UPPER EXTERMITY PAIN DUE TO A DVT X3 YEARS. PAIN TODAY IS RATED 7/10. HX OF DVT. DENIES PLEURITIC CHEST PAIN. A&OX4. RESPIRATIONS ARE EVEN AND UNLABORED. PULSES 2+ BILATERALLY.
[2021-06-24 18:04] LABS: BASOPHILS % (AUTO) 0.4 % (0.0-2.0); EOSINOPHILS % (AUTO) 0.3 % (0.0-6.0); HEMATOCRIT 40 % (33-45); HEMOGLOBIN 13.5 g/dL (11.5-14.8); LYMPHOCYTES # (AUTO) 1.5 K/uL (0.8-4.8); LYMPHOCYTES % (AUTO) 25.7 % (20.0-44.0); MEAN CORPUSCULAR HGB CONC 33 g/dl (31.0-36.0); MEAN CORPUSCULAR VOLUME 90 fL (82-100); MONOCYTES # (AUTO) 0.4 K/uL (0.1-1.30); MONOCYTES % (AUTO) 6.1 % (2.0-12.0); NEUTROPHILS # (AUTO) 4.1 K/uL (1.8-8.9); NEUTROPHILS % (AUTO) 67.5 % (43.0-81.0); PLATELET COUNT (AUTO) 211 K/uL (150-450); RED BLOOD CELL COUNT(AUTO) 4.49 MIL/uL (4.0-5.2)
[2021-06-24 18:29] LABS: CALCIUM, SERUM 8.9 mg/dL (8.5-10.1); POTASSIUM 3.4 mmol/L (3.5-5.1)
--- NOTE | 2021-06-24 18:41 | NUR ---
U/S TECH AT BEDSIDE FOR RLE DUPLEX ULTRASOUND.
--- NOTE | 2021-06-24 18:42 | NUR ---
MOVE SHEET SUBMITTED.
--- NOTE | 2021-06-24 19:21 | NUR ---
IV FLUIDS RUNNING
--- NOTE | 2021-06-24 19:36 | NUR ---
COVID SWAB COLLECTED AND SENT TO LAB
[2021-06-24] MEDS ORDERED: MAGNESIUM HYDROXIDE 30 ML UDC PO PRN (20:30)
[2021-06-24] MEDS ORDERED: ACETAMINOPHEN 325 MG TABLET PO PRN (20:30)
[2021-06-24] MEDS ORDERED: MAG HYDROX/AL HYDROX/SIMETH 30 ML UDC PO PRN (20:30)
[2021-06-24] MEDS ORDERED: Z GUARD REMEDY 2 OZ OINT TP PRN (20:30)
[2021-06-24] MEDS ORDERED: ZOLPIDEM TARTRATE 5 MG TABLET PO PRN (20:30)
[2021-06-24] MEDS ORDERED: ONDANSETRON HCL/PF 4 MG/2 ML VIAL IVP PRN (20:30)
[2021-06-24] MEDS ORDERED: ALBUTEROL SULFATE INH 18 GM HFA.AER.AD IH PRN (20:30)
[2021-06-24] MEDS ORDERED: TRAMADOL HCL 50 MG TABLET PO PRN (20:30)
--- NOTE | 2021-06-24 20:56 | NUR ---
MS [id number]
--- NOTE | 2021-06-24 21:12 | NUR ---
NURSE WILL CALL BACK FOR REPORT
--- NOTE | 2021-06-24 21:18 | NUR ---
REPORT GIVEN TO DAMIR MENDEZ
[2021-06-24 21:52] VITALS: BP 142/76
--- NOTE | 2021-06-24 21:52 | NUR ---
CONSTRUCTION CODE ADMINISTRATOR NOTE RECEIVED PT FROM [place] TO [id number].[id number] ACCOMPANIED BY VEGETABLE CANNER. ADMITTED FOR DVT TO RIGHT LOWER EXTREMITY. PT A/OX4, ABLE TO VERBALIZE NEEDS. RESPIRATIONS EVEN/UNLABORED. ON ROOM AIR AND TEOFILO WELL. DENIES SOB. IV SITE R-AC #20G INTACT/PATENT/FLUSHES WELL. SKIN ASSESSMENT DONE, SKIN IS INTACT. PROVIDED ORIENTATION TO FACILITY, ROOM AND STAFF; BELONGINGS ACCOUNTED FOR. SAFETY INSTRUCTIONS PROVIDED AND PT VERBALIZED UNDERSTANDING. WILL CONT TO MONITOR.
[2021-06-24] MEDS ORDERED: DIAZEPAM 2 MG TABLET ONE (22:58)
[2021-06-24] MEDS ORDERED: DIAZEPAM 2 MG TABLET PO ONE (23:00)
--- NOTE | 2021-06-24 23:03 | NUR ---
RN NOTE PT STATES SHE IS FEELING ANXIOUS AND JITTERY, REQUESTS MED FOR ANXIETY. REPORTED TO CLIFTON SETH NP WITH ORDER FOR VALIUM 2MG PO X1. NOTED/CARRIED OUT.
[2021-06-25] MEDS: MORPHINE SULFATE INJ 2 MG/ML DISP.SYRIN IV PRN ×4 (05:59→23:23)
[2021-06-25 06:16] LABS: BASOPHILS % (AUTO) 0.2 % (0.0-2.0); EOSINOPHILS % (AUTO) 0.3 % (0.0-6.0); HEMATOCRIT 37 % (33-45); HEMOGLOBIN 12.3 g/dL (11.5-14.8); LYMPHOCYTES # (AUTO) 1.5 K/uL (0.8-4.8); LYMPHOCYTES % (AUTO) 24.1 % (20.0-44.0); MEAN CORPUSCULAR HGB CONC 34 g/dl (31.0-36.0); MEAN CORPUSCULAR VOLUME 90 fL (82-100); MONOCYTES # (AUTO) 0.5 K/uL (0.1-1.30); MONOCYTES % (AUTO) 7.9 % (2.0-12.0); NEUTROPHILS # (AUTO) 4.1 K/uL (1.8-8.9); NEUTROPHILS % (AUTO) 67.5 % (43.0-81.0); PLATELET COUNT (AUTO) 182 K/uL (150-450); RED BLOOD CELL COUNT(AUTO) 4.07 MIL/uL (4.0-5.2)
[2021-06-25 06:49] LABS: CALCIUM, SERUM 8.5 mg/dL (8.5-10.1); CREATININE 0.8 mg/dL (0.6-1.3); MAGNESIUM 1.9 mg/dL (1.8-2.4); PHOSPHORUS 3.7 mg/dL (2.5-4.9); POTASSIUM 4.6 mmol/L (3.5-5.1)
[2021-06-25] MEDS: DIAZEPAM 2 MG TABLET PO SCH ×3 (07:00→21:30)
--- NOTE | 2021-06-25 07:30 | NUR ---
RN CLOSING NOTE PT RESTING IN BED, EASILY AROUSABLE TO STIMULI. DENIES PAIN/DISCOMFORT AT THIS TIME. DENIES SOB. PT SLEPT WELL THROUGHOUT THE NIGHT. NO ACUTE EVENTS NOTED. SAFETY MEASURES MAINTAINED. ENDORSED TO NEXT SHIFT NURSE.
--- NOTE | 2021-06-25 07:37 | NUR ---
MS RN OPENING NOTES RECEIVED PATIENT IN BED WATCHING TV. A/O X4. PATIENT ON ROOM AIR, TOLERATING WELL. BREATHING EVEN AND UNLABORED. NO SOB NOTED. NO COMPLAINS OF PAIN AT THIS TIME. IV ACCESS PATENT, INTACT AND FLUSHING WELL. SAFETY PRECAUTIONS IN PLACE; BED IN LOW POSITION AND LOCKED, RAILS UP X2, CALL LIGHT WITHIN REACH. WILL CONTINUE TO MONITOR PATIENT THROUGHOUT SHIFT.
[2021-06-25 08:00] VITALS: BP 123/71
[2021-06-25] MEDS: CYCLOBENZAPRINE 10 MG TABLET PO SCH ×3 (08:54→16:41)
[2021-06-25] MEDS: predniSONE 20 MG TABLET PO SCH (08:54)
[2021-06-25] MEDS ORDERED: BUDESONIDE RESPULE INH 0.5 MG/2 ML AMPUL.NEB IH SCH ×2 (09:00→09:30)
[2021-06-25] MEDS ORDERED: DIAZEPAM 2 MG TABLET PO SCH (09:00)
[2021-06-25] MEDS ORDERED: ALBUTEROL FS 2.5 MG/3 ML VIAL.NEB NEB PRN (10:00)
--- NOTE | 2021-06-25 10:00 | NUR ---
MS RN NOTES INFORMED PHARMACY UNABLE TO PULL OUT BUDESONIDE PULMICORT FROM EITHER OMNICELL.
[2021-06-25] MEDS: APIXABAN 5 MG TABLET PO SCH ×2 (10:47→17:25)
[2021-06-25 16:00] VITALS: BP 146/92
--- NOTE | 2021-06-25 18:51 | NUR ---
MS RN NOTES PT IS REQUESTING ORDER FOR NORCO FOR RIGHT LEG PAIN. PT STATES MORPHINE IS NOT RELIEVING PAIN ENTIRELY. MADE DR. NICHOLAS DOWNEY AWARE, AWAITING NEW ORDERS.
--- NOTE | 2021-06-25 18:52 | NUR ---
MS RN CLOSING NOTES PATIENT IN BED WATCHING TV. A/O X4. PATIENT ON ROOM AIR, TOLERATING WELL. BREATHING EVEN AND UNLABORED. NO SOB NOTED. NO COMPLAINS OF PAIN AT THIS TIME. IV ACCESS PATENT, INTACT AND FLUSHING WELL. SAFETY PRECAUTIONS MAINTAINED. ALL NEEDS MET THROUGHOUT SHIFT. CALL LIGHT WITHIN REACH. WILL ENDORSE CONTINUITY OF CARE TO ONCOMING SHIFT.
--- NOTE | 2021-06-25 19:05 | NUR ---
RN OPENING NOTE PT AWAKE, SITTING UP IN BED, A/OX4, ABLE TO VERBALIZE NEEDS. RESPIRATION EVEN/UNLABORED. DENIES SOB. DENIES PAIN AT THIS TIME. AMBULATORY. SAFETY MEASURES IN PLACE, BED IN LOWEST LOCKED POSITION, S/R UPX2, CALL LIGHT WITHIN REACH. WILL CONT TO MONITOR.
[2021-06-25] MEDS: HYDROCODONE/APAP 5/325MG TABLET PO PRN (19:18)
[2021-06-25 20:00] VITALS: BP 143/85
[2021-06-25] MEDS: BUDESONIDE RESPULE INH 0.5 MG/2 ML AMPUL.NEB IH SCH (20:21)
[2021-06-26] MEDS: HYDROCODONE/APAP 5/325MG TABLET PO PRN ×3 (02:29→15:00)
[2021-06-26] MEDS: DIAZEPAM 2 MG TABLET PO SCH ×2 (07:05→13:41)
--- NOTE | 2021-06-26 07:20 | NUR ---
MS RN OPENING NOTE RECEIVED PATIENT AWAKE ON BED, ALERT AND ORIENTED X 4. PATIENT ON ROOM AIR WITH NO SIGNS OF RESPIRATORY DISTRESS. PATIENT IS AMBULATORY WITH STEADY GAIT. SAFETY MEASURES IN PLACE WITH BED IN LOWEST LOCKED POSITION, WITH SIDE RAILS UP AND CALL LIGHT WITHIN REACH. WILL CONTINUE TO MONITOR PATIENT.
--- NOTE | 2021-06-26 07:30 | NUR ---
RN CLOSING NOTE PT RESTING IN BED, EASILY AROUSABLE TO STIMULI. SHE DENIES PAIN/DISCOMFORT AT THIS TIME. NO SOB. PAIN WELL MANAGED DURING THE SHIFT. NO ACUTE DISTRESS NOTED. ALL NEEDS ATTENDED TO. SAFETY MEASURES MAINTAINED.
[2021-06-26 08:00] VITALS: BP 144/90
[2021-06-26] MEDS: BUDESONIDE RESPULE INH 0.5 MG/2 ML AMPUL.NEB IH SCH (08:09)
[2021-06-26] MEDS: MORPHINE SULFATE INJ 2 MG/ML DISP.SYRIN IV PRN ×2 (08:11→14:42)
[2021-06-26] MEDS: CYCLOBENZAPRINE 10 MG TABLET PO SCH ×2 (08:12→13:41)
[2021-06-26] MEDS: predniSONE 20 MG TABLET PO SCH (08:12)
[2021-06-26] MEDS: APIXABAN 5 MG TABLET PO SCH (08:23)
--- NOTE | 2021-06-26 15:00 | NUR ---
MS RN NOTE PATIENT WITH ORDER FOR DISCHARGE. HEALTH TEACHING DONE REGARDING DISCHARGE INSTRUCTIONS AND MEDICATIONS. PATIENT VERBALIZED UNDERSTANDING AND APPRECIATION. WILL CONTINUE TO MONITOR PATIENT.
[2021-06-26 16:17] VITALS: BP 122/79
--- NOTE | 2021-06-26 17:00 | NUR ---
MS RN NOTE PATIENT DISCHARGED ORDERED IN STABLE CONDITION. IV ACCESS REMOVED AND COVERED WITH DRESSING WITH NO SIGNS OF BLEEDING. ID BAND REMOVED. REINFORCED PATIENT HEALTH TEACHING, VERBALIZED UNDERSTANDING AND APPRECIATION. PATIENT ACCOMPANIED BY THIS NURSE TO THE LOBBY ON A WHEELCHAIR. PATIENT PICKED UP BY SON VIA CAR. IN STABLE CONDITION. ENDORSED ACCORDINGLY.
[2021-06-26] MEDS ORDERED: ENOXAPARIN SODIUM 120 MG/0.8 ML DISP.SYRIN SQ SCH (21:00)
== END 2021-06-26 17:00 | disposition home or self-care (01) | DRG 197 ==
LOC: ER 17:00 → TELE 20:59 → MED 22:28
PROVIDERS: ADMIT Nurse Practitioner Acute Care
DX: I82.411 Acute embolism and thrombosis of right femoral vein (principal); J80 Acute respiratory distress syndrome; I82.431 Acute embolism and thrombosis of right popliteal vein; Z20.822 Contact with and (suspected) exposure to COVID-19; F41.9 Anxiety disorder, unspecified; Z68.41 Body mass index [BMI] 40.0-44.9, adult; E66.01 Morbid (severe) obesity due to excess calories; D25.9 Leiomyoma of uterus, unspecified; F32.A Depression, unspecified; Z79.01 Long term (current) use of anticoagulants; Z79.899 Other long term (current) drug therapy; Z79.51 Long term (current) use of inhaled steroids; J44.9 Chronic obstructive pulmonary disease, unspecified; E78.5 Hyperlipidemia, unspecified; Z91.19 Patient's noncompliance with other medical treatment and regimen; G47.30 Sleep apnea, unspecified; F17.200 Nicotine dependence, unspecified, uncomplicated; E11.9 Type 2 diabetes mellitus without complications; K76.0 Fatty (change of) liver, not elsewhere classified
CPT/HCPCS: 36415; 71045-TC; 80048-TC; 83735-TC; 83880; 84100-TC; 84484-TC; 85025-TC; 87081-TC; 93971-TC; 94799-TC; C9803; G0378; J1650; J2270; J2405; J7030; Q9967

== ENCOUNTER 2021-07-27 08:42 | Emergency (ER) | payer MEDICAID ==
[~2021-07-27] VITALS: Ht 172.7 cm; Wt 113.4 kg
[~2021-07-27 08:42] MED LIST changes: -CEPH500C2 PO; -DICL50TA7 PO; -NAPR-1009 PO; -PRED20TA PO
[2021-07-27 09:14] VITALS: BP 121/77
--- NOTE | 2021-07-27 09:15 | NUR ---
TO ER BED 9, BLE SWELLING AND R KNEE PAIN X 2 WEEKS. AAOX3, BREATHING EVEN AND NON LABORED, AWAITING MD LACKEY
--- NOTE | 2021-07-27 09:50 | NUR ---
US AT BEDSIDE
[2021-07-27] MEDS ORDERED: HYDR-4303 PO (10:06)
[2021-07-27] MEDS ORDERED: MORPHINE SULFATE INJ 4 MG/ML DISP.SYRIN ONE (10:28)
[2021-07-27] MEDS ORDERED: MORPHINE SULFATE INJ 2 MG/ML DISP.SYRIN IM ONE (10:30)
--- NOTE | 2021-07-27 11:04 | NUR ---
Patient discharged to home in stable condition. Written and verbal after care instructions given. Patient verbalizes understanding of instruction.
== END 2021-07-27 11:05 | disposition home or self-care (01) ==
LOC: ER 08:50
DX: I82.5Z1 Chronic embolism and thrombosis of unspecified deep veins of right distal lower extremity (principal); R60.0 Localized edema; F17.200 Nicotine dependence, unspecified, uncomplicated; Z60.2 Problems related to living alone; Z79.899 Other long term (current) drug therapy
CPT/HCPCS: 93970; 96372; 99284; J2270

== ENCOUNTER 2021-07-30 10:58 | Inpatient (IN) | payer MEDICAID ==
[~2021-07-30] VITALS: Ht 172.7 cm; Wt 131.8 kg
--- NOTE | 2021-07-30 11:10 | NUR ---
PT tripped and fall going up to the stairs, landed on her chest and R knee,no loc, feeling weak. PT A/OX4. TOLERATING R/A WELL WITH NO SOB. NO ABNORMAL EXTREMITY EXTENSION OR ROTATION NOTED.
--- NOTE | 2021-07-30 11:20 | NUR ---
PT A/OX3 WITH SOME FORGETFULLNESS.
--- NOTE | 2021-07-30 11:33 | NUR ---
PT RETURNED TO ER ROOM [address]
[2021-07-30 12:11] LABS: BASOPHILS # (AUTO) 0.1 K/uL (0.0-0.2); BASOPHILS % (AUTO) 0.8 % (0.0-2.0); EOSINOPHILS % (AUTO) 0.1 % (0.0-6.0); HEMATOCRIT 36 % (33-45); HEMOGLOBIN 11.8 g/dL (11.5-14.8); LYMPHOCYTES # (AUTO) 1.3 K/uL (0.8-4.8); LYMPHOCYTES % (AUTO) 14.5 % (20.0-44.0); MEAN CORPUSCULAR HGB CONC 33 g/dl (31.0-36.0); MEAN CORPUSCULAR VOLUME 91 fL (82-100); MONOCYTES # (AUTO) 0.5 K/uL (0.1-1.30); MONOCYTES % (AUTO) 5.7 % (2.0-12.0); NEUTROPHILS # (AUTO) 7.3 K/uL (1.8-8.9); NEUTROPHILS % (AUTO) 78.9 % (43.0-81.0); PLATELET COUNT (AUTO) 191 K/uL (150-450); RED BLOOD CELL COUNT(AUTO) 3.89 MIL/uL (4.0-5.2); WHITE BLOOD COUNT (AUTO) 9.2 K/uL (4.3-11.0)
[2021-07-30 12:18] LABS: CALCIUM, SERUM 9.2 mg/dL (8.5-10.1); CARBON DIOXIDE 25 mmol/L (21-32); CHLORIDE 99 mmol/L (98-107); CREATININE 0.9 mg/dL (0.6-1.3); GLUCOSE 192 mg/dL (74-106); POTASSIUM 4.2 mmol/L (3.5-5.1); SODIUM SERUM 133 mmol/L (136-145); UREA NITROGEN, BLOOD 13 mg/dL (7-18)
[2021-07-30 12:24] LABS: ACETAMINOPHEN < 10 ug/ml (10-30); ALANINE AMINOTRANSFERASE 33 U/L (12-78); ALBUMIN 3.2 g/dL (3.4-5.0); ALCOHOL, BLOOD < 3 mg/dL (0-0); ALKALINE PHOSPHATASE 126 U/L (46-116); ASPARTATE AMINOTRANSFERASE 28 U/L (15-37); BILIRUBIN,DIRECT 0.1 mg/dL (0.0-0.2); BILIRUBIN,TOTAL 0.2 mg/dL (0.2-1.0); TOTAL PROTEIN, SERUM 7.1 g/dL (6.4-8.2)
--- NOTE | 2021-07-30 12:35 | NUR ---
URINE COLLECTED AND SENT TO LAB
[2021-07-30 12:49] LABS: BILIRUBIN,URINE Negative (NEGATIVE); COLOR,URINE YELLOW (YELLOW); LEUKOCYTE ESTERASE ,URINE Negative (NEGATIVE); NITRITE, URINE Negative (NEGATIVE); PROTEIN,URINE Negative (NEGATIVE); UGLUCOSE Negative (NEGATIVE); UROBILINOGEN,URINE 0.2 EU/dL (0.2)
--- NOTE | 2021-07-30 12:54 | NUR ---
CALLED CHINYERE SON WITH NO RESPONSE; AWAITING CALL BACK
[2021-07-30] MEDS ORDERED: ZOLPIDEM TARTRATE 5 MG TABLET PO PRN (14:30)
[2021-07-30] MEDS ORDERED: ALBUTEROL SULFATE INH 18 GM HFA.AER.AD IH PRN (14:30)
[2021-07-30] MEDS ORDERED: ACETAMINOPHEN 325 MG TABLET PO PRN (14:30)
[2021-07-30] MEDS ORDERED: ONDANSETRON HCL/PF 4 MG/2 ML VIAL IVP PRN (14:30)
[2021-07-30] MEDS ORDERED: Z GUARD REMEDY 2 OZ OINT TP PRN (14:30)
[2021-07-30] MEDS ORDERED: IV 1/2NS 1000 ML 1,000 ML IV PRN (14:30)
[2021-07-30] MEDS ORDERED: MAG HYDROX/AL HYDROX/SIMETH 30 ML UDC PO PRN (14:30)
[2021-07-30] MEDS ORDERED: DEXTROSE 50%-WATER 50 ML DISP.SYRIN IV PRN (14:30)
[2021-07-30] MEDS ORDERED: MAGNESIUM HYDROXIDE 30 ML UDC PO PRN (14:30)
[2021-07-30] MEDS ORDERED: CYCLOBENZAPRINE 10 MG TABLET PO PRN (14:30)
--- NOTE | 2021-07-30 15:00 | NUR ---
CHINYERE ALLEN AT PT'S BEDSIDE. PER SON PT'S LOC IS ABNORMAL. GARY GOMES SPOKE TO SON ABOUT PLAN OF CARE
--- NOTE | 2021-07-30 15:20 | NUR ---
RAC #20G S/L PATENT AND INTACT
--- NOTE | 2021-07-30 15:26 | NUR ---
ROOM 306-1
--- NOTE | 2021-07-30 15:30 | NUR ---
DR. LEDESMA FROM [facility] SPEAKING WITH JUVENAL GOMES
[2021-07-30] MEDS ORDERED: ATOR10TA PO (15:56)
[2021-07-30] MEDS ORDERED: BUPR-319 PO (15:56)
[2021-07-30] MEDS ORDERED: METF-440 PO (15:56)
[2021-07-30] MEDS ORDERED: APIX5TAB PO (15:56)
[2021-07-30] MEDS ORDERED: ZOLP10TA2 PO (15:56)
[2021-07-30] MEDS ORDERED: CALC-15 PO (15:56)
[2021-07-30] MEDS ORDERED: OMEG1CAP74 PO (15:56)
[2021-07-30] MEDS ORDERED: QUET25TA PO (15:56)
[2021-07-30] MEDS ORDERED: CHOL500052 PO (15:56)
[2021-07-30] MEDS ORDERED: ALBU18HF2 IH (15:56)
--- NOTE | 2021-07-30 16:13 | NUR ---
NICANOR CALLED FROM [facility] [phone] WANTS CLINICALS FAXED TO [facility] [phone]
--- NOTE | 2021-07-30 16:20 | NUR ---
CHINYERE GUTIERREZ (SON)
--- NOTE | 2021-07-30 16:23 | NUR ---
COVID SWAB TAKEN VIA CUSTOMS COLLECTOR AND SENT TO LAB
[2021-07-30] MEDS: HYDROCODONE/APAP 5/325MG TABLET PO PRN (16:30)
[2021-07-30] MEDS ORDERED: HYDROCODONE/APAP 5/325MG TABLET ONE (16:30)
--- NOTE | 2021-07-30 16:30 | NUR ---
FAXED CLINICALS TO [facility] [phone] ADMITTING TEL [phone]
--- NOTE | 2021-07-30 16:42 | NUR ---
MAHSA YARN EXAMINER FROM [facility] TEL [phone]
--- NOTE | 2021-07-30 16:48 | NUR ---
SPOKE TO COREY ORTIZ [facility] WALL INSULATION SPRAYER ABOUT PT. WILL CALL COREY TO UPDATE ON PT'S COVID RESULTS
--- NOTE | 2021-07-30 16:57 | NUR ---
CRISTELA CALLED FROM [facility] PT OK TO STAY PER VERBAL AUTH PLEASE FAX CLINICALS TO [facility] [phone]
--- NOTE | 2021-07-30 17:04 | NUR ---
ROOM 306-1
--- NOTE | 2021-07-30 17:21 | NUR ---
REPORT GIVEN TO HUANG REICH FOR ADAIR
--- NOTE | 2021-07-30 17:41 | NUR ---
PT TRANSFERRED TO [address] [place] [address] VIA HOSPITAL PROTOCOL. ALL BELONGINGS WITH PT
--- NOTE | 2021-07-30 17:50 | NUR ---
MS RN RECEIVING NOTES RECEIVED PATIENT VIA WHEELCHAIR,A/O X 3 WITH PERIODS OF CONFUSION,VITAL SIGNS CHECK: BP 128/80 MG/DL,HR 91 BPM, TEMP 97.5F, O2 SAT 96% IN ROOM AIR. IV ACCESS IN RIGHT AC #20,SALINE LOCK,INTACT AND PATENT. ORIENTED TO MED/SURG UNIT.SAFETY MEASURES IN PLACED,BED IN LOWEST POSITION,LOCKED AND CALL LIGHT WITHIN REACH. WILL ENDORSE TO INCOMING SHIFT.
[2021-07-30] MEDS: BLOOD SUGAR DIAGNOSTIC 1 EACH STRIP IN SCH ×2 (18:48→22:08)
[2021-07-30] MEDS: APIXABAN 5 MG TABLET PO SCH (19:03)
--- NOTE | 2021-07-30 19:30 | NUR ---
INFORMATICS SPEC OPENING NOTES RECEIVED PATIENT SITTING ON BED. PATIENT IS A/O X3. PATIENT IS STABLE ON ROOM AIR. IV ACCESS NOTED IN RAC G#20, WHICH IS INTACT, PATENT, AND FLUSHING WELL. PATIENT'S IN NO ACUTE DISTRESS AT THIS TIME. SAFETY MEASURES IN PLACE: BED LOCKED, BED ALARM ON, SR UPX3, AND CALL LIGHT WITHIN REACH OF THE PATIENT. WILL CONTINUE TO MONITOR THE PATIENT.
[2021-07-30 20:00] VITALS: BP 140/79
[2021-07-30] MEDS: INSULIN REGULAR, HUMAN 100 UNIT/ML 3 ML VIAL SQ PRN (22:11)
--- NOTE | 2021-07-30 22:19 | NUR ---
APPLIQUE CUTTER NOTES PATIENT'S BLOOD SUGAR AT 2202 WAS 210MG/DL. ADMINISTERED 4 UNITS OF ORDERED INSULIN COVERAGE NEEDED. WILL CONTINUE TO MONITOR THE PATIENT.
[2021-07-31] VITALS: BP 133/76
--- NOTE | 2021-07-31 01:25 | NUR ---
FLEET ADMINISTRATOR NOTES PATIENT'S ROOM SMELLED LIKE SMOKE AT APPROXIMATELY THIS TIME. PER PATIENT, SHE SMOKED IN HER ROOM BECAUSE SHE FELT ANXIOUS. SECURITY WAS CALLED AND CONFISCATED 4 LIGHTERS FROM THE PATIENT'S ROOM. PER PATIENT, SHE DOESN'T HAVE ANYMORE LIGHTERS/TOBACCO IN HER ROOM ANYMORE. CHARGE NURSE WAS MADE AWARE. Addendum: 07/31/21 at 0200 by LEXUS ROSAS RN FLEET ADMINISTRATOR NOTES THE PATIENT'S 4 LIGHTERS WERE PLACED IN A ZIP LOCK BAG AND STORED IN THE NURSE'S STATION. PATIENT'S AWARE THAT SHE WILL GET THE LIGHTERS BACK WHEN SHE'S DISCHARGED.
[2021-07-31] MEDS: HYDROCODONE/APAP 5/325MG TABLET PO PRN ×2 (01:59→09:57)
--- NOTE | 2021-07-31 01:59 | NUR ---
BRANCH MECHANIC NOTES PATIENT C/O 03/17 PAIN. PATIENT WAS GIVEN 1 TABLET OF NORCO (5/325MG) BY PO. WILL REASSESS THE PAIN AT 0259.
[2021-07-31 04:00] VITALS: BP 122/57
[2021-07-31 06:41] LABS: BASOPHILS % (AUTO) 0.1 % (0.0-2.0); EOSINOPHILS % (AUTO) 0.3 % (0.0-6.0); HEMATOCRIT 34 % (33-45); HEMOGLOBIN 11.3 g/dL (11.5-14.8); LYMPHOCYTES # (AUTO) 1.3 K/uL (0.8-4.8); LYMPHOCYTES % (AUTO) 17.3 % (20.0-44.0); MEAN CORPUSCULAR HGB CONC 34 g/dl (31.0-36.0); MEAN CORPUSCULAR VOLUME 91 fL (82-100); MONOCYTES # (AUTO) 0.4 K/uL (0.1-1.30); MONOCYTES % (AUTO) 5.7 % (2.0-12.0); NEUTROPHILS # (AUTO) 5.7 K/uL (1.8-8.9); NEUTROPHILS % (AUTO) 76.6 % (43.0-81.0); PLATELET COUNT (AUTO) 188 K/uL (150-450); WHITE BLOOD COUNT (AUTO) 7.5 K/uL (4.3-11.0)
[2021-07-31 06:50] LABS: CALCIUM, SERUM 8.8 mg/dL (8.5-10.1); CREATININE 0.9 mg/dL (0.6-1.3); MAGNESIUM 1.7 mg/dL (1.8-2.4); PHOSPHORUS 3.6 mg/dL (2.5-4.9); POTASSIUM 4.5 mmol/L (3.5-5.1)
[2021-07-31 06:53] LABS: THYROID STIMULATING HORMONE 0.756 uIU/mL (0.358-3.74)
--- NOTE | 2021-07-31 07:13 | NUR ---
OLIVE BRINE TESTER NOTES PATIENT'S BLOOD SUGAR AT THIS TIME WAS 123MG/DL. WILL CONTINUE TO MONITOR THE PATIENT.
[2021-07-31] MEDS: BLOOD SUGAR DIAGNOSTIC 1 EACH STRIP IN SCH ×2 (07:15→12:19)
[2021-07-31] MEDS ORDERED: PANTOPRAZOLE 40 MG TABLET.DR PO SCH (07:30)
--- NOTE | 2021-07-31 07:30 | NUR ---
LINE ASSIGNER OPENING NOTES RECEIVED PATIENT SITTING ON BED. PATIENT IS A/O X3. PATIENT IS STABLE ON ROOM AIR. IV ACCESS NOTED IN RAC G#20, WHICH IS INTACT, PATENT, AND FLUSHING WELL. PATIENT'S IN NO ACUTE DISTRESS AT THIS TIME.BREATHS EVEN AND UNLABORED. SAFETY MEASURES IN PLACE: BED LOCKED, BED ALARM ON, SR UPX2, AND CALL LIGHT AND TABLE WITHIN REACH OF THE PATIENT. WILL CONTINUE TO MONITOR THE PATIENT
[2021-07-31 08:27] VITALS: BP 140/87
[2021-07-31] MEDS ORDERED: FLUTICASONE/VILANTEROL 1 EACH BLST.W.DEV IH SCH (09:00)
[2021-07-31] MEDS: APIXABAN 5 MG TABLET PO SCH ×2 (09:12→16:11)
[2021-07-31] MEDS ORDERED: HYDROCODONE/APAP 10/325MG TABLET PO PRN (12:00)
[2021-07-31] MEDS: Magnesium 1GM/D5W 100ML PREMIX 100 ML IV SCH ×3 (12:00→13:11)
[2021-07-31] MEDS: INSULIN REGULAR, HUMAN 100 UNIT/ML 3 ML VIAL SQ PRN (12:25)
--- NOTE | 2021-07-31 14:32 | NUR ---
TELE/RN NOTES- IV DISCONTINUED IV ON RIGHT UPPER ARM IS LEAKING. DISCONTINUED IV ACCESS. MAGNESIUM 2 GM IV NOT GIVEM. NOTIFIED KAMRAN AUSTIN ORDERED TO CONVERT MAG IV TO MAGNESIUM OXIDE 800MG POBID X 4 DOSES. WILL CARRY OUT ORDER.
--- NOTE | 2021-07-31 14:34 | NUR ---
TELE/RN NOTES- PATIENT REFUSED IV ACCESS AT THIS TIME REFUSED IV ACCESS ACCESS AT THIS TIME. AWARE.
[2021-07-31 15:40] VITALS: BP 143/84
[2021-07-31] MEDS: MAGNESIUM OXIDE 400 MG TABLET PO SCH ×2 (15:43→16:10)
--- NOTE | 2021-07-31 16:47 | NUR ---
MS/WAREHOUSE SHIPPING SUPERVISOR NOTES PATIENT IS ALERT AND ORIENTED X3, ABLE TO MAKE NEEDS KNOWN. PATIENT IS MEDICALLY STABLE AND DR. ANDREW ORDERED A DISCHARGE TO HOME FOR THE PATIENT. DISCHARGE INSTRUCTIONS GIVEN TO THE PATIENT, ABLE TO VERBALIZED UNDERSTANDING, ALL BE LONGINGS ACCOUNTED FOR. ESCORTED PATIENT DOWN TO THE LOBBY AND WILL BE PICKED UP BY THE SON VIA PRIVATE CAR.
== END 2021-07-31 16:45 | disposition home or self-care (01) | DRG 812 ==
LOC: ER 11:01 → TELE 17:09 → MED 07-31 14:59
PROVIDERS: ATTEND Nurse Practitioner Acute Care
DX: T42.4X1A Poisoning by benzodiazepines, accidental (unintentional), initial encounter (principal); G92.8 Other toxic encephalopathy; E44.0 Moderate protein-calorie malnutrition; E87.1 Hypo-osmolality and hyponatremia; E88.09 Other disorders of plasma-protein metabolism, not elsewhere classified; E11.9 Type 2 diabetes mellitus without complications; Z20.822 Contact with and (suspected) exposure to COVID-19; Y92.009 Unspecified place in unspecified non-institutional (private) residence as the place of occurrence of the external cause; W10.9XXA Fall (on) (from) unspecified stairs and steps, initial encounter; E66.01 Morbid (severe) obesity due to excess calories; Z86.718 Personal history of other venous thrombosis and embolism; T42.71XA Poisoning by unspecified antiepileptic and sedative-hypnotic drugs, accidental (unintentional), initial encounter; Z68.41 Body mass index [BMI] 40.0-44.9, adult; Z79.01 Long term (current) use of anticoagulants; M17.11 Unilateral primary osteoarthritis, right knee; Z79.84 Long term (current) use of oral hypoglycemic drugs; Z87.891 Personal history of nicotine dependence; F31.9 Bipolar disorder, unspecified
CPT/HCPCS: 36415; 70450-TC; 73560-TC; 80048-TC; 80076-TC; 82962-TC; 83735-TC; 84100-TC; 84443-TC; 85025-TC; 85730-TC; 87081-TC; 97116-TC; 97530-TC; C9803; G0378; G0480; J1815; J3475; J3490

== ENCOUNTER 2022-01-07 18:29 | Emergency (ER) | payer MEDICAID ==
[~2022-01-07] VITALS: Ht 175.3 cm; Wt 119.7 kg
[~2022-01-07 18:29] MED LIST changes: -ACET237L PO; +ALBU18HF2 IH; -ALBU18HF2 INH; +ATOR10TA PO; +BUPR-319 PO; +CALC-15 PO; +CHOL500052 PO; -DIAZ2TAB PO; +METF-440 PO; +OMEG1CAP74 PO; +QUET25TA PO; -TRAM50TA2 PO; +ZOLP10TA2 PO
--- NOTE | 2022-01-07 18:42 | NUR ---
BIB SON C/O R LEG EDEMA, REDNESS, AND PAIN. HX OF DVT ON R LEG. AAAOX4, CMS INTACT. PT ABLE TO WIGGLE TOES BILATERALLY. LEG SENSATION INTACT.
--- NOTE | 2022-01-07 19:11 | NUR ---
US TECH AT PT'S BEDSIDE
[2022-01-07] MEDS ORDERED: HYDROCODONE/APAP 5/325MG TABLET ONE ×2 (19:48→21:27)
[2022-01-07] MEDS ORDERED: HYDROCODONE/APAP 5/325MG TABLET PO ONE ×2 (20:00→21:30)
[2022-01-07] MEDS ORDERED: HYDR25TA4 PO (21:15)
--- NOTE | 2022-01-07 21:30 | NUR ---
Patient discharged to home in stable condition. Written and verbal after care instructions given. Patient verbalizes understanding of instruction. pt. ambulatory with a steady gait
[2022-01-07 21:31] VITALS: BP 148/70
== END 2022-01-07 21:38 | disposition home or self-care (01) ==
LOC: ER 18:31
DX: R60.0 Localized edema (principal); E11.9 Type 2 diabetes mellitus without complications; Z86.718 Personal history of other venous thrombosis and embolism; Z79.899 Other long term (current) drug therapy
CPT/HCPCS: 93970-TC

== ENCOUNTER 2023-04-06 14:58 | Emergency (ER) | payer MEDICAID, OTHER ==
[~2023-04-06] VITALS: Ht 172.7 cm; Wt 117.9 kg
[~2023-04-06 14:58] MED LIST changes: +HYDR25TA4 PO
--- NOTE | 2023-04-06 15:22 | NUR ---
PATIENT CAME TO EMERGENCY DEPARTMENT WITH RT LOWER LEG PAIN AND SWELLING.ALERT AND ORIENTED.ON ROOM AIR.PATIENT ATTACHED TO MONITOR AND PULSE OXYMETER.ALL SAFTEY MEASURES AT BED SIDE.AWAITING MD FOR EVAL.
--- NOTE | 2023-04-06 16:10 | NUR ---
DR FANG AT BED SIDE
[2023-04-06] MEDS ORDERED: MORPHINE SULFATE INJ 2 MG/ML DISP.SYRIN ONE ×2 (16:36→17:59)
[2023-04-06] MEDS: MORPHINE SULFATE INJ 2 MG/ML DISP.SYRIN IV ONE ×2 (16:40→18:04)
--- NOTE | 2023-04-06 16:40 | NUR ---
IV INSERTED ON LEFT AC NO 20G,BLOOD COLLECTED AND SEND TO LAB.
--- NOTE | 2023-04-06 16:52 | NUR ---
XRAY AT BED SIDE
[2023-04-06 16:55] LABS: BASOPHILS % (AUTO) 0.5 % (0.0-2.0); EOSINOPHILS % (AUTO) 0.7 % (0.0-6.0); HEMATOCRIT 42 % (33-45); LYMPHOCYTES # (AUTO) 1.8 K/uL (0.8-4.8); LYMPHOCYTES % (AUTO) 26.7 % (20.0-44.0); MEAN CORPUSCULAR HGB CONC 33 g/dl (31.0-36.0); MEAN CORPUSCULAR VOLUME 89 fL (82-100); MONOCYTES # (AUTO) 0.5 K/uL (0.1-1.30); MONOCYTES % (AUTO) 7.3 % (2.0-12.0); NEUTROPHILS # (AUTO) 4.3 K/uL (1.8-8.9); NEUTROPHILS % (AUTO) 64.8 % (43.0-81.0); PLATELET COUNT (AUTO) 223 K/uL (150-450); RED BLOOD CELL COUNT(AUTO) 4.72 MIL/uL (4.0-5.2); WHITE BLOOD COUNT (AUTO) 6.7 K/uL (4.3-11.0)
--- NOTE | 2023-04-06 16:57 | NUR ---
SCAN AT BED SIDE.
[2023-04-06 17:07] LABS: CALCIUM, SERUM 9.6 mg/dL (8.5-10.1); CREATININE 0.5 mg/dL (0.6-1.3); POTASSIUM 4.8 mmol/L (3.5-5.1)
--- NOTE | 2023-04-06 17:24 | NUR ---
X RAY AT BED SIDE.
--- NOTE | 2023-04-06 18:14 | NUR ---
DR FANG AT BED SIDE.
[2023-04-06 18:23] VITALS: BP 117/80; TEMP 98; O2SAT 98
--- NOTE | 2023-04-06 18:29 | NUR ---
CALLED [facility] FOR PEER TO PEER WITH DR FANG. PT'S ENVIRONMENTAL PROTECTION SPECIALIST DR AUGUSTE IS UNAVAILABLE AND DR. BOND IS RESEARCH LABORATORY SPECIALIST. AWAITING CALLBACK.
--- NOTE | 2023-04-06 18:37 | NUR ---
[facility] PHONE NUMBER [phone]
--- NOTE | 2023-04-06 18:59 | NUR ---
DR FANG AT BED SIDE ,EXPLAINING RESULTS TO PATIENT.PATIENT DOESNOT WANT TO BE ADMITTED IN HOSPITAL.
--- NOTE | 2023-04-06 19:00 | NUR ---
PATIENT SIGHNED FOR AMA
--- NOTE | 2023-04-06 19:12 | NUR ---
IV removed. Catheter intact and site benign. Pressure and 4x4 applied to site. No bleeding noted.
--- NOTE | 2023-04-06 19:13 | NUR ---
Patient discharged to home in stable condition. Written and verbal after care instructions given. Patient verbalizes understanding of instruction.
== END 2023-04-06 19:15 | disposition left against medical advice (07) ==
LOC: ER 15:02
DX: I82.411 Acute embolism and thrombosis of right femoral vein (principal); R06.02 Shortness of breath; J44.9 Chronic obstructive pulmonary disease, unspecified; E11.9 Type 2 diabetes mellitus without complications; F17.200 Nicotine dependence, unspecified, uncomplicated; Z79.899 Other long term (current) drug therapy
CPT/HCPCS: 99285; 96374; 93971; 71045; 93005; 96376; 73502; 73564; 85025; 80048; 36415; J2270 ×2

== ENCOUNTER 2023-04-14 10:07 | Emergency (ER) | payer OTHER ==
[~2023-04-14] VITALS: Ht 165.1 cm; Wt 113.9 kg
[2023-04-14] MEDS ORDERED: MORPHINE SULFATE INJ 2 MG/ML DISP.SYRIN IV ONE ×3 (10:30→16:30)
[2023-04-14] MEDS ORDERED: MORPHINE SULFATE INJ 2 MG/ML DISP.SYRIN ONE ×3 (10:43→16:30)
[2023-04-14 10:58] LABS: CARBON DIOXIDE 23 mmol/L (21-32); CHLORIDE 99 mmol/L (98-107); CREATININE 0.8 mg/dL (0.6-1.3); GLUCOSE 189 mg/dL (74-106); SODIUM SERUM 133 mmol/L (136-145); UREA NITROGEN, BLOOD 6 mg/dL (7-18)
[2023-04-14 11:08] LABS: INR 1.01 (0.91-1.10); PARTIAL THROMBOPLASTIN TIME 30.5 SEC (24.3-34.3); PROTHROMBIN TIME 10.6 SECS (9.2-11.1)
[2023-04-14 11:19] LABS: BASOPHILS % (AUTO) 0.2 % (0.0-2.0); EOSINOPHILS % (AUTO) 0.6 % (0.0-6.0); HEMATOCRIT 46 % (33-45); HEMOGLOBIN 15.2 g/dL (11.5-14.8); LYMPHOCYTES # (AUTO) 1.6 K/uL (0.8-4.8); LYMPHOCYTES % (AUTO) 20.4 % (20.0-44.0); MEAN CORPUSCULAR HEMOGLOBIN 30 PG (26.0-33.0); MEAN CORPUSCULAR HGB CONC 33 g/dl (31.0-36.0); MEAN CORPUSCULAR VOLUME 89 fL (82-100); MONOCYTES # (AUTO) 0.5 K/uL (0.1-1.30); MONOCYTES % (AUTO) 5.8 % (2.0-12.0); NEUTROPHILS # (AUTO) 5.8 K/uL (1.8-8.9); PLATELET COUNT (AUTO) 250 K/uL (150-450); RED CELL DISTRIBUTION WIDTH 14.9 % (11.5-15.0); WHITE BLOOD COUNT (AUTO) 7.9 K/uL (4.3-11.0)
[2023-04-14] MEDS ORDERED: BREX1TAB PO (11:34)
[2023-04-14 19:05] VITALS: BP 121/61; TEMP 98; O2SAT 97
== END 2023-04-14 19:06 | disposition short-term general hospital (02) ==
LOC: ER 10:11
DX: I82.401 Acute embolism and thrombosis of unspecified deep veins of right lower extremity (principal); J44.9 Chronic obstructive pulmonary disease, unspecified; E11.9 Type 2 diabetes mellitus without complications; F17.200 Nicotine dependence, unspecified, uncomplicated
CPT/HCPCS: 99285; 96374; 71045; 93005; 96376; 85025; 80048; 36415; 84484; 85730; J2270 ×3